=== PATIENT | female | born 1995 | race Caucasian/White ===

== ENCOUNTER 2017-01-04 02:16 | Emergency (ER) | payer OTHER ==
[2017-01-04 02:45] VITALS: PULSE 80; O2SAT 100
[2017-01-04] MEDS ORDERED: Bacitracin 500 Units/gm Oint Foilpak UD TOP ONE (04:20)
--- NOTE | 2017-01-04 04:20 | C.PDOC ---
History Of Present Illness 21 year old female who presents to the ER with a complaint of pain and swelling to the left 3rd finger associated with an abrasion to the right albright. Patient states she tripped and fell while walking down the stairs 2 days ago. Denies weakness or numbness. Time Seen by Provider: 01/04/17 02:54 Chief Complaint (Nursing): Upper Extremity Problem/Injury History Per: Patient History/Exam Limitations: no limitations Onset/Duration Of Symptoms: Days Current Symptoms Are (Timing): Still Present Exacerbating Factor(s): Strenuous Use Of Affected Area Recent travel outside of the [place]: No Past Medical History Reviewed: Historical Data, Nursing Documentation, Vital Signs Vital Signs: Last Vital Signs Temp 98 F 01/04/17 04:33 Pulse 80 01/04/17 04:33 Resp 16 01/04/17 04:33 BP 112/73 01/04/17 04:33 Pulse Ox 100 01/04/17 04:56 - Medical History PMH: Asthma Surgical History: No Surg Hx Family History: States: Unknown Family Hx - Social History Hx Tobacco Use: No Hx Alcohol Use: Yes Hx Substance Use: No - Immunization History Hx Influenza Vaccination: No Review Of Systems Musculoskeletal: Positive for: Hand Pain Neurological: Negative for: Weakness, Numbness Physical Exam - Physical Exam Appears: Non-toxic, No Acute Distress Skin: Normal Color, Warm, Dry Head: Atraumatic, Normacephalic Eye(s): bilateral: Normal Inspection Oral Mucosa: Moist Neck: Normal ROM, No Midline Cervical Tenderness, No Paracervical Tenderness, No Step Off Deformity, Supple Extremity: Tenderness (to PIP joint of left 3rd finger), Capillary Refill (<2 SEC), Swelling (to PIP joint of left 3rd finger), Other (decreased ROM of left 3rd finger secondary to pain. 2cm superfical abrasion to right albright.) Pulses: Left Radial: Normal, Right Radial: Normal Neurological/Psych: Oriented x3, Normal Speech, Normal Cognition, Normal Motor, Normal Sensation Gait: Steady ED Course And Treatment O2 Sat by Pulse Oximetry: 100 (Room air) Pulse Ox Interpretation: Normal - Other Rad Left hand x-ray X-Ray: Interpreted by Me, Viewed By Me Interpretation: Swelling of 3rd PIP joint, no acute fractures or dislocations. Medical Decision Making Medical Decision Making: Plan: * Tylenol * Bacitracin * Left hand x-ray Finger splint applied by myself for pain. Will discharge home with instructions to follow up with PMD. Disposition - Disposition Referrals: Dilip Zamudio MD [Provisional Staff] - Disposition: HOME/ ROUTINE Disposition Time: 04:18 Condition: GOOD Additional Instructions: Follow up with the medical doctor within 1-2 days, Return if worsened, Instructions: Finger Sprain (ED) Forms: [employer] ([facility]ami) - Clinical Impression Clinical Impression: Finger sprain, Abrasion - Scribe Statement The provider has reviewed the documentation as recorded by the Scribsebas Stanley All medical record entries made by the Scribe were at my direction and personally dictated by me. I have reviewed the chart and agree that the record accurately reflects my personal performance of the history, physical exam, medical decision making, and the department course for this patient. I have also personally directed, reviewed, and agree with the discharge instructions and disposition.
[2017-01-04 04:35] VITALS: BP 112/73; RESP 16; TEMP 98
--- NOTE | 2017-01-04 08:09 | RAD ---
PROCEDURE: Left middle finger radiographs. HISTORY: fall COMPARISON: None. TECHNIQUE: AP radiograph of the left hand, as well as spot oblique and lateral images of left middle finger were obtained. FINDINGS: LEFT MIDDLE FINGER: Left middle finger normal, has volar prominent trabecular markings - here no definite cortical fractures noted. The lateral frontal views are unrevealing here. Soft tissue swelling is most pronounced dorsally at the 3rd proximal interphalangeal joint. No fracture or dislocation here noted JOINTS: Normal. SOFT TISSUES: Dorsal soft tissue swelling 3rd proximal interphalangeal joint OTHER FINDINGS: None. IMPRESSION: No cortical fracture. Nonspecific volar trabecular marking prominence per a single oblique view - 3rd distal phalanx. No gross soft tissue associated swelling here noted. Directed physical exam here needed to exclude a potential trabecular microfracture (which is doubted) Third dorsal proximal interphalangeal joint soft tissue swelling. No fracture here. No dislocation
== END 2017-01-04 04:35 | disposition home or self-care (01) ==
LOC: C.ER 02:16
DX: S63.613A Unspecified sprain of left middle finger, initial encounter (principal); S80.811A Abrasion, right lower leg, initial encounter; W10.9XXA Fall (on) (from) unspecified stairs and steps, initial encounter; Y92.89 Other specified places as the place of occurrence of the external cause